=== PATIENT | female | born 1960 | race Caucasian/White ===

== ENCOUNTER 2019-06-28 14:35 | Emergency (ER) | payer MEDICAID ==
[~2019-06-28] VITALS: Ht 165.1 cm; Wt 93.9 kg
--- NOTE | 2019-06-28 14:47 | NUR ---
SENT BY FOR EVAL BLOOD CLOT IN THE HEART PER PT., TO ER BED 4, HOOKED TO MONITOR, CHANGED TO HOSP GOWN, WARM BLANKET PROVIDED. PATIENT AOx 4, BREATHING EVEN AND UNLABORED. DR AVILES AT BEDSIDE
[2019-06-28 15:15] LABS: BASOPHILS # (AUTO) 0.1 /CMM (0.0-0.2); BASOPHILS % (AUTO) 0.7 % (0.0-2.0); EOSINOPHILS % (AUTO) 1.2 % (0.0-6.0); HEMATOCRIT 46 % (33-45); HEMOGLOBIN 15.5 g/dL (11.5-14.8); LYMPHOCYTES # (AUTO) 2.2 /CMM (0.8-4.8); LYMPHOCYTES % (AUTO) 32.3 % (20.0-44.0); MEAN CORPUSCULAR HGB CONC 34 g/dl (31.0-36.0); MEAN CORPUSCULAR VOLUME 94 fL (82-100); MONOCYTES # (AUTO) 0.5 /CMM (0.1-1.30); MONOCYTES % (AUTO) 7.2 % (2.0-12.0); NEUTROPHILS % (AUTO) 58.6 % (43.0-81.0); PLATELET COUNT (AUTO) 211 /CMM (150-450); WHITE BLOOD COUNT (AUTO) 6.8 K/uL (4.3-11.0)
[2019-06-28 15:22] LABS: CALCIUM, SERUM 10.1 mg/dL (8.5-10.1); CARBON DIOXIDE 33 mmol/L (21-32); CHLORIDE 102 mmol/L (98-107); CREATININE 0.9 mg/dL (0.6-1.3); GLUCOSE 152 mg/dL (74-106); POTASSIUM 2.9 mmol/L (3.5-5.1); SODIUM SERUM 143 mmol/L (136-145); UREA NITROGEN, BLOOD 13 mg/dL (7-18)
--- NOTE | 2019-06-28 16:03 | NUR ---
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
[2019-06-28] MEDS ORDERED: OMEG-167 PO (16:09)
[2019-06-28] MEDS ORDERED: ASPI-1152 PO (16:09)
[2019-06-28] MEDS ORDERED: ERGO500014 PO (16:09)
[2019-06-28] MEDS ORDERED: CARV25TA2 PO (16:09)
[2019-06-28] MEDS ORDERED: LOSA1TAB39 PO (16:09)
[2019-06-28 16:11] LABS: BILIRUBIN,DIRECT 0.1 mg/dL (0.0-0.2); BILIRUBIN,TOTAL 0.7 mg/dL (0.2-1.0); TOTAL PROTEIN, SERUM 7.7 g/dL (6.4-8.2)
--- NOTE | 2019-06-28 16:50 | NUR ---
DR JIMENEZ AT BEDSIDE
--- NOTE | 2019-06-28 17:00 | NUR ---
PAGED [facility].
--- NOTE | 2019-06-28 17:10 | NUR ---
SPOKE TO LORE OF [facility] CASE MANAGEMENT, PROVIDED W CLINICALS, WILL CALL US BACK IN 30MIN FOR AN UPDATE CALL BACK #: [phone]
[2019-06-28] MEDS ORDERED: APIXABAN 5 MG TABLET PO SCH (17:30)
--- NOTE | 2019-06-28 17:58 | NUR ---
RECEIVED CALL FROM LORE INTAKE MAN FOR [facility], CANNOT TRANSFER TO [facility], NO CARDIAC SERVICES. THEY WILL TRY TO CALL LEXI TINOCO AND EDILBERTO TUBBS. WILL CALL US BACK FOR UPDATE IN 20-30MIN
--- NOTE | 2019-06-28 18:06 | NUR ---
US TECH AT BEDSIDE
[2019-06-28] MEDS ORDERED: IOHEXOL-350 100 ML VIAL IV ONE (18:18)
--- NOTE | 2019-06-28 18:22 | NUR ---
WHEELED OUT VIA WHEELCHAIR FOR PULMONARY ANGIO
--- NOTE | 2019-06-28 18:25 | NUR ---
PRELIMINARY FINDING OF ECHO SHOWED HYPERECHOIC STRUCTURE IN LEFT ATRIUM ATTACHED TO THE IAS. INITIAL RESULT ADVISED TO RN.
--- NOTE | 2019-06-28 18:26 | NUR ---
DR ANSARI OF [facility] WILL CALL US TO GET REPORT FROM REHANA FREY.
--- NOTE | 2019-06-28 19:17 | NUR ---
MADE MD AWARE OF ELEVATED BP.
--- NOTE | 2019-06-28 19:18 | NUR ---
REPORT GIVEN TO MICHAEL CABRERA FOR [facility]
[2019-06-28] MEDS ORDERED: LOSARTAN POTASSIUM 25 MG TABLET ONE (19:22)
[2019-06-28] MEDS ORDERED: LOSARTAN POTASSIUM 25 MG TABLET PO ONE (19:30)
--- NOTE | 2019-06-28 19:34 | NUR ---
REPORT RECEIVED FROM RICK DANIELLE FOR [facility]
--- NOTE | 2019-06-28 20:16 | NUR ---
ADMITTING SPOKE TO LORE NAVARRETE. PT WILL GO TO [facility], BUT THERE IS NO BED AVAILABLE YET. DIRECT NUMBER [phone]
[2019-06-28] MEDS ORDERED: hydrALAZINE HCL IV 20 MG VIAL ONE (20:36)
--- NOTE | 2019-06-28 20:38 | NUR ---
MADE AWARE OF PT'S ELEVATED BP 231/[phone]
[2019-06-28] MEDS ORDERED: hydrALAZINE HCL IV 20 MG VIAL IV ONE (21:00)
--- NOTE | 2019-06-28 21:46 | NUR ---
LANDON CALLED AND INFORMED ME THAT SINCE THERE IS STILL NO BED AVAILABLE, GARFIELD PÉREZ IS ESCALATING THE REQUEST TO THE [facility] [employer] [employer]GRAM REPRESENTATIVE. LANDON WILL CALL WHEN SHE HAS MORE INFORMATION
--- NOTE | 2019-06-28 21:53 | NUR ---
MADE AWARE OF PT'S BP
[2019-06-28] MEDS ORDERED: AMLODIPINE BESYLATE 5 MG TABLET PO ONE (22:30)
--- NOTE | 2019-06-28 23:00 | NUR ---
CM CALLED TO GIVE UPDATED INFORMATION. [facility]. CALL REPORT TO [phone]
--- NOTE | 2019-06-28 23:15 | NUR ---
CALLED [facility]. NURSE IS NOT AVAILABLE YET
--- NOTE | 2019-06-28 23:57 | NUR ---
REPORT GIVEN TO RICK DOUGHERTY FROM [facility]
[2019-06-29] MEDS ORDERED: hydrALAZINE HCL IV 20 MG VIAL ONE (01:34)
--- NOTE | 2019-06-29 01:39 | NUR ---
REPORT GIVEN TO EMS FOR TRANSFER. PT WILL BE TRANSFERRED IN THE [facility]
[2019-06-29 01:47] VITALS: BP 217/96
[2019-06-29] MEDS ORDERED: hydrALAZINE HCL IV 20 MG VIAL IV ONE (02:00)
[2019-06-29] MEDS ORDERED: LOSARTAN/HCTZ 50-12.5MG/ 1 EA TABLET PO SCH (09:00)
[2019-06-29] MEDS ORDERED: ASPIRIN EC 81 MG TABLET.DR PO SCH (09:00)
[2019-06-29] MEDS ORDERED: CARVEDILOL 25 MG TABLET PO SCH (09:00)
[2019-07-01] MEDS ORDERED: ERGOCALCIFEROL (VITAMIN D 2) 50,000 UNIT CAPSULE PO SCH (17:30)
== END 2019-06-29 01:49 | disposition short-term general hospital (02) ==
LOC: ER 14:35
DX: I21.9 Acute myocardial infarction, unspecified (principal); I10 Essential (primary) hypertension; Z86.73 Personal history of transient ischemic attack (TIA), and cerebral infarction without residual deficits; Z79.82 Long term (current) use of aspirin; Z79.899 Other long term (current) drug therapy
CPT/HCPCS: 36415; 71045; 71275; 80048; 80076; 83880; 84484; 85025; 85730; 86850; 93005 ×5; 93307; 96374; 96376; 99285; J0360 ×2; Q9967